=== PATIENT | female | born 1990 | race Caucasian/White ===

== ENCOUNTER → 2016-06-23 | Outpatient (CLI) | payer OTHER ==
[~2016-06-23] MED LIST: PRILOSEC PO; [UNRECOGNIZED DRUG - OTHER] PO
== END | disposition home or self-care (01) ==
LOC: CBAR 12:59
DX: Z01.818 Encounter for other preprocedural examination (principal); E66.01 Morbid (severe) obesity due to excess calories
CPT/HCPCS: G0463

== ENCOUNTER → 2016-07-19 | Outpatient (CLI) | payer SELFPAY | END | disposition home or self-care (01) | LOC: CBAR 13:26 | DX: Z01.818 Encounter for other preprocedural examination (principal); E66.01 Morbid (severe) obesity due to excess calories | CPT/HCPCS: G0463 ==

== ENCOUNTER → 2016-08-16 | Outpatient (CLI) | payer SELFPAY | END | disposition home or self-care (01) | LOC: CBAR 06:32 | DX: Z01.818 Encounter for other preprocedural examination (principal); E66.01 Morbid (severe) obesity due to excess calories | CPT/HCPCS: G0463 ==

== ENCOUNTER → 2016-11-11 | Outpatient (CLI) | payer OTHER ==
--- NOTE | ~2016-11-11 | CR63 ---
[facility] A Service of [facility] & [facility] RADIOLOGY TEXT RESULTS PATIENT: ANNETTE AVILA LOCATION: [facility] : [birth year] UNIT #: [id number] AGE: [address]: Aravind De Guzman III, MD SEX: F ORDER DR: [id number] [facility] [address]. [place], [place] [address] [id number] O MR#: [id number] Acc #: [id number] NAME: ANNETTE AVILA : 1990 SEX: F STUDY DATE/TIME: 11/11/2016 8:21 UNIT: [facility] ROOM: STUDY DESCRIPTION: CR Chest 2 View Attending Physician: Aravind De Guzman III, M.D. Ordering Physician: Aravind De Guzman III, M.D. Primary Care Physician: Eran Cam MEDICAL IMAGING REPORT This report is preliminary unless electronic signature is present EXAM Chest PA and lateral, 11/11/2016. HISTORY Morbid obesity, preop laparoscopic gastric banding. FINDINGS PA and lateral examination of the chest upright shows a good expansion of the parenchyma with a normal distribution of the pulmonary vascularity. There is no indication of congestion, effusion, infiltrate, tumor, or nodular density. The pleural reflections and diaphragmatic contours are normal. The cardiac silhouette and mediastinal anatomy is within normal limits. IMPRESSION Normal chest. Dictated by... Rich Turner M.D. THIS IS AN ELECTRONICALLY VERIFIED REPORT Rich Turner M.D. at 11/11/2016 4:53 PM EVELIO/noe TD: 11/11/2016 11:58 JOB #: [id number] MEDICAL IMAGING REPORT Page 1 of 1 COPY
--- NOTE | ~2016-11-11 | CR97 ---
[facility] A Service of [facility] & [facility] RADIOLOGY TEXT RESULTS PATIENT: ANNETTE AVILA LOCATION: [facility] : 88 UNIT #: [id number] AGE: [address]: Aravind De Guzman III, MD SEX: F ORDER DR: [id number] [id number] [place], [place] [address] [id number] O MR#: [id number] Acc #: [id number] NAME: ANNETTE AVILA : 1990 SEX: F STUDY DATE/TIME: 11/11/2016 9:03 UNIT: [facility] ROOM: STUDY DESCRIPTION: CR Esophagram Attending Physician: Aravind De Guzman III, M.D. Ordering Physician: Aravind De Guzman III, M.D. Primary Care Physician: Eran Cam M.D. MEDICAL IMAGING REPORT This report is preliminary unless electronic signature is present EXAM Esophagram HISTORY Gastric Lap-Band surgery pending. Evaluate for esophageal anomalies prior to surgery. The patient is asymptomatic. TECHNIQUE Multiple views of the esophagus were obtained with thin liquid barium. A total of 17 spot films were obtained. Fluoroscopy time 0.3 minutes. FINDINGS The swallowing mechanism is normal. The esophagus shows no evidence of stricture, mass or mucosal irregularity. No hiatal hernia is seen. The gastroesophageal junction has a normal configuration. IMPRESSION Normal. Dictated by... Connor Valderrama M.D. THIS IS AN ELECTRONICALLY VERIFIED REPORT Connor Valderrama M.D. at 11/11/2016 4:42 PM Thony TD: 11/11/2016 14:58 JOB #: [id number] MEDICAL IMAGING REPORT Page 1 of 1 COPY
--- NOTE | ~2016-11-11 | EKG ---
PATIENT: ANNETTE AVILA UNIT #: [id number] Ventricular Rate: 78 BPM Atrial Rate: 78 BPM P-R Interval: 122 ms QRS Duration: 104 ms Q-T Interval: 406 ms QTC Calculation(Bezet): 462 ms P [place]: 26 degrees Calculated R [place]: -2 degrees Calculated T [place]: 8 degrees Diagnosis Line: Normal sinus rhythm with sinus arrhythmia Diagnosis Line: Incomplete right bundle branch block Diagnosis Line: Minimal voltage criteria for LVH, may be normal Diagnosis Line: variant Diagnosis Line: Borderline ECG Diagnosis Line: No previous ECGs available Diagnosis Line: Confirmed by MARIA R FERNANDEZ MD ([id number]) on 11/13/2016 Diagnosis Line: 2:47:41 PM INTERPRETING MD: JIM MAI
[2016-11-11 09:26] LABS: HEMATOCRIT 40.8 % (35.0-45.0); HEMOGLOBIN 13.7 gm/dL (12.0-16.0); MEAN CELL VOLUME 84.6 FL (83-96); MEAN CORPUSCULAR HEMOGLOBIN 28.3 PG (28-34); MEAN CORPUSCULAR HGB CONC 33.5 g/dL (30-36); MEAN PLATELET VOLUME 10.5 FL (6.5-11.5); RED BLOOD COUNT 4.83 X10e (3.90-5.30); RED CELL DISTRIBUTION WIDTH 14.2 % (11.0-15.5); WHITE BLOOD COUNT 7.6 X10e3 (4.0-10.5)
[2016-11-11 10:08] LABS: ALBUMIN SERUM 4.1 g/dL (3.5-5.0); BILIRUBIN,TOTAL 0.5 mg/dL (0.2-2.0); BUN/CREATININE RATIO 15.71; CALCIUM SERUM 9.3 mg/dL (8.4-10.2); CREATININE SERUM 0.7 mg/dL (0.6-1.4); GLOM FILT RATE Estimated 117.9 mL/min (>60); POTASSIUM 4.4 mmol/L (3.5-5.1)
== END | disposition home or self-care (01) ==
LOC: CRAD 07:58 → CAMB 08:30
PROVIDERS: Surgery
DX: Z01.818 Encounter for other preprocedural examination (principal); E66.01 Morbid (severe) obesity due to excess calories
CPT/HCPCS: 36415; 71020; 74220; 80053; 80061; 84443; 85027; 93005

== ENCOUNTER → 2016-11-23 | Day surgery (SDC) | payer OTHER ==
--- NOTE | ~2016-11-23 | CR7 ---
[facility] A Service of [facility] & [facility] RADIOLOGY TEXT RESULTS PATIENT: ANNETTE AVILA LOCATION: [facility] : [birth year] UNIT #: [id number] AGE: [address]: Aravind De Guzman III, MD SEX: F ORDER DR: [id number] [facility] [place] [facility] [address] [place], [place] [address] [id number] O MR#: [id number] Acc #: [id number] NAME: ANNETTE AVILA : 1990 SEX: F STUDY DATE/TIME: 11/23/2016 8:28 UNIT: [facility] ROOM: STUDY DESCRIPTION: CR Abdomen Single AP View Attending Physician: Aravind De Guzman III, M.D. Ordering Physician: Aravind De Guzman III, M.D. Primary Care Physician: Eran Cam MEDICAL IMAGING REPORT This report is preliminary unless electronic signature is present EXAM Abdomen, 11/23. INDICATIONS Status post gastric band placement today. Abdominal pain. FINDINGS Supine view of the abdomen was obtained. Gastric band is present with a phi angle of 51 degrees. Bowel gas pattern is normal. Port is in the left lower quadrant. IMPRESSION Gastric band in place with a phi angle of 51 degrees. Dictated by... Connor Orona Jr., M.D. THIS IS AN ELECTRONICALLY VERIFIED REPORT Connor Orona Jr., M.D. at 11/23/2016 5:09 PM MEDARDO/sudarshan TD: 11/23/2016 11:30 JOB #: [id number] MEDICAL IMAGING REPORT Page 1 of 1 COPY
--- NOTE | ~2016-11-23 | OR ---
Unit #: [id number] #: [id number] Patient: ANNETTE AVILA [id number] [facility] [address] [place] [address]. [place], [place] [address] [id number] O MR#: [id number] NAME: ANNETTE AVILA ROOM: Date of Procedure: 11/23/2016 Admission Date: 11/23/2016 Surgeon: Aravind De Guzman III, M.D. : 1990 Attending Physician: Aravind De Guzman III, M.D. Primary Care Physician: Eran Cam PROCEDURE OPERATIVE NOTE PREOPERATIVE DIAGNOSIS Chronic morbid obesity. POSTOPERATIVE DIAGNOSIS Chronic morbid obesity. SECONDARY DIAGNOSIS Anterior paraesophageal hernia. PROCEDURE PERFORMED Laparoscopic adjusted gastric banding (AP standard with low-profile port) and laparoscopic paraesophageal hernia repair. SURGEON Dr. Aravind De Guzman. BEESWAX BLEACHER Dr. Venu Melo. SPECIMEN None. COMPLICATIONS None apparent. ESTIMATED BLOOD LOSS Minimal. ANESTHESIA General endotracheal tube anesthesia. INDICATION FOR PROCEDURE This is a 26-year-old lady who has chronic severe obesity with a BMI of 36 and associated co-morbidities of sleep apnea and reflux. She has been through the bariatric program at [facility] and understands the risks and benefits of the procedure. DESCRIPTION OF PROCEDURE After consent was obtained, including the risks and benefits of slippage, erosion, port dysfunction, and possible failure of weight loss due to noncompliance, the patient was taken to the operating room and placed in the supine position. General anesthetic was administered and the abdomen was prepped and draped in standard surgical fashion. Unit #: [id number] #: [id number] Patient: ANNETTE AVILA I began by making a 2 cm incision just above and to the left of the umbilicus. I used a Visiport to enter the peritoneal cavity without any difficulty. C02 pneumoperitoneum was then established. Next, I placed a 5 mm port in the right upper quadrant, a 5 mm Le liver retractor in the subxiphoid region to provide exposure of the gastroesophageal junction. Next, a 10 mm port was placed in the left upper quadrant and a 5 mm port was placed in the left lateral subcostal region. I began by performing an examination of the GE junction to evaluate for a hiatal hernia. We then scored the peritoneal attachments overlying the angle of His. I then opened up the clear space in the gastrohepatic ligament, and then using 2 blunt graspers, I identified the small fat pad crossing over the right crura. I swept the fat anterior to the crura off the crura and using the pars flaccida, I created a retrogastric tunnel where the blunt grasper exited at the angle of His. Once I had made this tunnel safely, I then inserted an Allergan AP band into the abdominal cavity. This adjustable gastric band was then place around the upper part of the stomach and fastened and buckled anteriorly. We then tacked the lateral fundus over the band to the proximal pouch with 2 interrupted 0 Ethibond sutures. I then used a third stitch to imbricate the excess anterior stomach by going from the lesser curvature up towards where the last stitch was placed. We then had excellent hemostasis. I removed the Le liver retractor. We then removed the port tubing through the initial port incision. The rest of the ports were removed, and the pneumoperitoneum was released. I then left a small tail on the tubing. We then attached the port to the excess band tubing. We placed a piece of Prolene mesh along the back side of the port and used a Prolene stitch to anchor this mesh in place. We then trimmed the excess mesh so that just a small footprint of mesh was in place behind the port. I then inserted the tubing back into the abdominal cavity, and we placed the port into a small pocket that was made just inferior to where our initial port incision was made. The mesh was in direct contact with the fascia, and this will scar in place to hold the port in place. We then injected all the port sites with 0.25% plain Marcaine, and I reapproximated the skin edges with interrupted 4-0 Vicryl subcuticular sutures. Steri-strips were then applied. The patient tolerated the procedure without any problems and returned to the recovery room in stable condition. ADDENDUM After exposure of the GE junction, the patient was noted to have a small to medium sized anterior paraesophageal hernia. I scored the phrenoesophageal ligament, reduced the hernia defect, including the hernia sac, and after these were carefully identified, I reapproximated the crura with interrupted 0 Ethibond [id number] suture. We then proceeded with the case as listed above. Dictated by... Aravind De Guzman III, M.D. VCL/eddie TD: 11/24/2016 18:56 JOB #: [id number] Unit #: [id number] #: [id number] Patient: ANNETTE AVILA PROCEDURE OPERATIVE NOTE Page 1 of 1 X Aravind De Guzman III, MD PROCEDURE OPERATIVE NOTE
--- NOTE | ~2016-11-23 | OR ---
Unit #: [id number] #: [id number] Patient: ANNETTE AVILA [id number] [facility] [address]. [place], [place] [address] [id number] O MR#: [id number] NAME: ANNETTE AVILA ROOM: Date of Procedure: 11/23/2016 Admission Date: 11/23/2016 Surgeon: Aravind De Guzman III, M.D. : 1990 Attending Physician: Aravind De Guzman III, M.D. Primary Care Physician: Eran Cam M.D. OPERATIVE REPORT PREOPERATIVE DIAGNOSIS Chronic morbid obesity. POSTOPERATIVE DIAGNOSIS Chronic morbid obesity. SECONDARY DIAGNOSIS Anterior paraesophageal hernia. PROCEDURES PERFORMED Laparoscopic adjustable gastric banding (AP standard with low-profile port) and laparoscopic paraesophageal hernia repair. LAMP TESTER AND INSPECTOR Dr. Venu Melo. SPECIMENS None. COMPLICATIONS None apparent. ESTIMATED BLOOD LOSS Minimal. ANESTHESIA General endotracheal tube anesthesia. INDICATIONS FOR PROCEDURE This is a 26-year-old lady, who has chronic severe obesity with a BMI of 36 and associated comorbidities of sleep apnea and reflux. She has been through the bariatric program at [facility] and understands the risks and benefits of the procedure. DESCRIPTION OF PROCEDURE After consent was obtained, including the risks and benefits of slippage, erosion, port dysfunction, and possible failure of weight loss due to noncompliance, the patient was taken to the operating room and placed in the supine position. General anesthetic was administered and the abdomen was prepped and draped in standard surgical fashion. I began by making a 2 cm incision just above and to the left of the Unit #: [id number] #: [id number] Patient: ANNETTE AVILA umbilicus. I used a Visiport to enter the peritoneal cavity without any difficulty. C02 pneumoperitoneum was then established. Next, I placed a 5 mm port in the right upper quadrant, a 5 mm Le liver retractor in the subxiphoid region to provide exposure of the gastroesophageal junction. Next, a 10 mm port was placed in the left upper quadrant and a 5 mm port was placed in the left lateral subcostal region. I began by performing an examination of the GE junction to evaluate for a hiatal hernia. We then scored the peritoneal attachments overlying the angle of His. I then opened up the clear space in the gastrohepatic ligament, and then using 2 blunt graspers, I identified the small fat pad crossing over the right crura. I swept the fat anterior to the crura off the crura and using the pars flaccida, I created a retrogastric tunnel where the blunt grasper exited at the angle of His. Once I had made this tunnel safely, I then inserted an Allergan AP band into the abdominal cavity. This adjustable gastric band was then place around the upper part of the stomach and fastened and buckled anteriorly. We then tacked the lateral fundus over the band to the proximal pouch with 2 interrupted 0 Ethibond sutures. I then used a third stitch to imbricate the excess anterior stomach by going from the lesser curvature up towards where the last stitch was placed. We then had excellent hemostasis. I removed the Le liver retractor. We then removed the port tubing through the initial port incision. The rest of the ports were removed, and the pneumoperitoneum was released. I then left a small tail on the tubing. We then attached the port to the excess band tubing. We placed a piece of Prolene mesh along the back side of the port and used a Prolene stitch to anchor this mesh in place. We then trimmed the excess mesh so that just a small footprint of mesh was in place behind the port. I then inserted the tubing back into the abdominal cavity, and we placed the port into a small pocket that was made just inferior to where our initial port incision was made. The mesh was in direct contact with the fascia, and this will scar in place to hold the port in place. We then injected all the port sites with 0.25% plain Marcaine, and I reapproximated the skin edges with interrupted 4-0 Vicryl subcuticular sutures. Steri-strips were then applied. The patient tolerated the procedure without any problems and returned to the recovery room in stable condition. ADDENDUM After exposure of the GE junction, the patient was noted to have a small to medium sized anterior paraesophageal hernia. I scored the phrenoesophageal ligament, reduced the hernia defect including the hernia sac and after these were carefully identified, I reapproximated the crura with interrupted 0 Ethibond [id number] suture. We then proceeded with the case as listed above. Dictated by... Aravind De Guzman III, M.D. VCL/jaz TD: 11/24/2016 10:39 JOB #: [id number] CC: Eran Cam M.D. Unit #: [id number] #: [id number] Patient: ANNETTE AVILA OPERATIVE REPORT Page 1 of 1 X Aravind De Guzman III, MD X PROCEDURE OPERATIVE NOTE
== END | disposition home or self-care (01) ==
LOC: CSUR 05:39
DX: E66.01 Morbid (severe) obesity due to excess calories (principal); Z68.36 Body mass index [BMI] 36.0-36.9, adult; K44.9 Diaphragmatic hernia without obstruction or gangrene; K21.9 Gastro-esophageal reflux disease without esophagitis; G47.33 Obstructive sleep apnea (adult) (pediatric); Z79.899 Other long term (current) drug therapy; Z87.442 Personal history of urinary calculi; Z90.49 Acquired absence of other specified parts of digestive tract; Z91.040 Latex allergy status
CPT/HCPCS: 74000; 84703; C1781; J0330; J0690; J1100; J1650; J1885; J2250; J2405; J3010